=== PATIENT | male | born 2000 | race Caucasian/White ===

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

== ENCOUNTER → 2019-05-01 | Outpatient (CLI) | payer BC ==
--- NOTE | 2019-05-01 17:24 | Diagnostic Imaging Report ---
EXAMINATION: CHEST 2 VIEWS INDICATION: Cough COMPARISON: None FINDINGS: LINES/TUBES:None LUNGS:The lungs are moderately inflated. Increased airspace opacity at the left lung base partially silhouettes the left heart border. PLEURA:No pleural effusion or pneumothorax. MEDIASTINUM:The cardiomediastinal silhouette appears normal in size and shape. BONES/SOFT TISSUES:No acute osseous injury. ABDOMEN:No free air under the diaphragm. IMPRESSION: Left basilar airspace opacities likely represent pneumonia in the proper clinical setting. RECOMMENDATIONS: Follow-up chest radiograph in 6-8 weeks to assess for resolution. Signed by: Giovanni Rich MD on 05/01/2019 5:21 PM
== END ==
LOC: RAD 16:54
PROVIDERS: ATTEND Family Medicine
DX: J40 Bronchitis, not specified as acute or chronic (principal)
CPT/HCPCS: 71046